=== PATIENT | female | born 1975 | race Caucasian/White ===

== ENCOUNTER 2021-01-28 09:09 | Outpatient (CLI) | payer BC ==
[2021-01-28 15:13] LABS: BASOPHILS # (AUTO) 0.1 10^3/uL (0.0-0.1); BASOPHILS % (AUTO) 1.3 %; EOSINOPHILS # (AUTO) 0.4 10^3/uL (0.0-0.7); EOSINOPHILS % (AUTO) 7.9 %; HCT - HEMATOCRIT 36.8 % (37.0-47.0); HGB - HEMOGLOBIN 11.7 g/dL (12.0-16.0); LYMPHOCYTES # (AUTO) 1.7 10^3/uL (1.5-3.5); LYMPHOCYTES % (AUTO) 32.2 %; MEAN CORPUSCULAR HGB CONC 31.8 g/dL (32.0-36.0); MEAN CORPUSCULAR VOLUME 94.4 fL (81.0-99.0); MEAN PLATELET VOLUME 10.1 fL (7.9-10.8); MONOCYTES # (AUTO) 0.5 10^3/uL (0.0-1.0); MONOCYTES % (AUTO) 9.8 %; NEUTROPHILS # (AUTO) 2.5 10^3/uL (1.5-6.6); NEUTROPHILS % (AUTO) 48.6 %; PLT - PLATELET COUNT 310 10^3/uL (130-450); RED CELL DISTRIBUTION WIDTH 12.8 % (12.0-15.0); WHITE BLOOD COUNT 5.2 x10^3/uL (4.8-10.8)
[2021-01-28 15:39] LABS: % IRON SATURATION 13 % (20-50); ALBUMIN/GLOBULIN RATIO 1.6 (1.0-2.2); ALKALINE PHOSPHATASE 36 IU/L (42-121); ALT ALANINE AMINOTRANSFERASE 15 IU/L (10-60); AST ASPARTATE AMINOTRANSFERASE 19 IU/L (10-42); BILIRUBIN,TOTAL 0.9 mg/dL (0.2-1.0); BUN - BLOOD UREA NITROGEN 17 mg/dL (6-20); CALCIUM 9.1 mg/dL (8.5-10.3); CARBON DIOXIDE - CO2 27 mmol/L (21-32); CHLORIDE 105 mmol/L (101-111); CHOL/HDL RATIO 2.2 (<4.4); CHOLESTEROL 258 mg/dL; CREATININE 0.6 mg/dL (0.4-1.0); GFR - MDRD 108 (>89); GLUCOSE 91 mg/dL (70-100); HDL CHOLESTEROL 115 mg/dL; IRON 47 ug/dL (28-170); SODIUM 141 mmol/L (135-145); TOTAL IRON BINDING CAPACITY 368 ug/dL (250-450); TOTAL PROTEIN 6.5 g/dL (6.7-8.2); TRANSFERRIN 263 mg/dL (192-382); TRIGLYCERIDES 31 mg/dL
[2021-01-28 15:45] LABS: THYROID STIMULATING HORMONE 0.6 uIU/mL (0.34-5.60)
[2021-01-28 15:46] LABS: FREE T3 2.81 pg/mL (2.5-3.9)
[2021-01-28 15:47] LABS: FREE T4 (FREE THYROXINE) 1.11 ng/dL (0.58-1.64)
[2021-01-28 15:52] LABS: FERRITIN 8.8 ng/mL (11.0-306.8)
[2021-01-31 09:51] LABS: DHEA SULFATE 157 mcg/dL (19-231)
[2021-02-04 16:36] LABS: T3 REVERSE 15 ng/dL (8-25)
== END 2021-01-28 09:10 | disposition home or self-care (01) ==
LOC: LAB.S 09:09
PROVIDERS: ATTEND Chiropractor
DX: Z00.00 Encounter for general adult medical examination without abnormal findings (principal); E03.9 Hypothyroidism, unspecified; E23.6 Other disorders of pituitary gland
CPT/HCPCS: 36415; 80053; 80061; 81599; 82306; 82627; 82728; 83540; 83721; 84270; 84402; 84403; 84439; 84443; 84466; 84481; 84482; 85025

== ENCOUNTER 2022-03-07 13:32 | Outpatient (CLI) | payer BC ==
[2022-03-07 19:58] LABS: THYROID STIMULATING HORMONE 0.63 uIU/mL (0.34-5.60)
== END 2022-03-07 13:33 | disposition home or self-care (01) ==
LOC: LAB.S 13:32
PROVIDERS: ATTEND Family Medicine
DX: E03.9 Hypothyroidism, unspecified (principal)
CPT/HCPCS: 36415; 84443

== ENCOUNTER 2022-04-12 08:57 | Outpatient (CLI) | payer BC ==
[2022-04-12 15:03] LABS: ESTIMATED AVERAGE GLUCOSE 97 mg/dL (70-100)
[2022-04-12 16:08] LABS: THYROID STIMULATING HORMONE 1.5 uIU/mL (0.34-5.60)
[2022-04-12 16:10] LABS: FREE T3 2.53 pg/mL (2.5-3.9); FREE T4 (FREE THYROXINE) 1.24 ng/dL (0.58-1.64)
[2022-04-13 22:07] LABS: THYROGLOBULIN ANTIBODY <1.0 IU/mL (0.0-0.9); THYROID PEROXIDASE (TPO) AB 9 IU/mL (0-34)
== END 2022-04-12 08:58 | disposition home or self-care (01) ==
LOC: LAB.S 08:57
PROVIDERS: ATTEND Chiropractor
DX: Z00.00 Encounter for general adult medical examination without abnormal findings (principal); E03.9 Hypothyroidism, unspecified
CPT/HCPCS: 36415; 83036; 84439; 84443; 84481; 84482; 86141; 86376; 86800

== ENCOUNTER 2023-07-04 07:12 | Outpatient (CLI) | payer BC, OTHER ==
[2023-07-04 14:35] LABS: BASOPHILS # (AUTO) 0.1 10^3/uL (0.0-0.1); BASOPHILS % (AUTO) 1.2 %; EOSINOPHILS # (AUTO) 0.5 10^3/uL (0.0-0.7); EOSINOPHILS % (AUTO) 12.5 %; HCT - HEMATOCRIT 38.7 % (37.0-47.0); HGB - HEMOGLOBIN 11.9 g/dL (12.0-16.0); LYMPHOCYTES # (AUTO) 1.9 10^3/uL (1.5-3.5); LYMPHOCYTES % (AUTO) 44.8 %; MEAN CORPUSCULAR HEMOGLOBIN 28.1 pg (27.0-31.0); MEAN CORPUSCULAR HGB CONC 30.7 g/dL (32.0-36.0); MEAN CORPUSCULAR VOLUME 91.3 fL (81.0-99.0); MEAN PLATELET VOLUME 10.3 fL (7.9-10.8); MONOCYTES # (AUTO) 0.5 10^3/uL (0.0-1.0); MONOCYTES % (AUTO) 10.8 %; NEUTROPHILS # (AUTO) 1.3 10^3/uL (1.5-6.6); NEUTROPHILS % (AUTO) 30.5 %; PLT - PLATELET COUNT 315 10^3/uL (130-450); RED BLOOD COUNT 4.24 10^6/uL (4.20-5.40); RED CELL DISTRIBUTION WIDTH 15.3 % (12.0-15.0); WHITE BLOOD COUNT 4.2 x10^3/uL (4.8-10.8)
[2023-07-04 15:12] LABS: ALBUMIN 4.1 g/dL (3.2-5.5); ALBUMIN/GLOBULIN RATIO 1.5 (1.0-2.2); ALKALINE PHOSPHATASE 49 IU/L (42-121); ALT ALANINE AMINOTRANSFERASE 12 IU/L (10-60); AST ASPARTATE AMINOTRANSFERASE 17 IU/L (10-42); BILIRUBIN,TOTAL 0.4 mg/dL (0.2-1.0); BUN - BLOOD UREA NITROGEN 17 mg/dL (6-20); CALCIUM 9.8 mg/dL (8.5-10.3); CARBON DIOXIDE - CO2 30 mmol/L (21-32); CHLORIDE 105 mmol/L (101-111); CHOL/HDL RATIO 2.3 (<4.4); CHOLESTEROL 273 mg/dL; CREATININE 0.7 mg/dL (0.6-1.3); GFR - MDRD 89 (>89); GLUCOSE 90 mg/dL (74-104); HDL CHOLESTEROL 117 mg/dL; LDL CHOLESTEROL,CALCULATED 147 mg/dL; LDL/HDL RATIO 1.3 (<4.4); POTASSIUM 4.4 mmol/L (3.5-4.5); SODIUM 139 mmol/L (135-145); TOTAL PROTEIN 6.9 g/dL (6.4-8.9); TRIGLYCERIDES 44 mg/dL (48-352); VLDL CHOLESTEROL 9 mg/dL
[2023-07-04 15:16] LABS: FERRITIN 5.8 ng/mL (11.0-306.8)
[2023-07-05 08:11] LABS: SEX HORM BINDING GLOB SERUM 50.9 nmol/L (24.6-122.0)
== END 2023-07-04 07:13 | disposition home or self-care (01) ==
LOC: LAB.S 07:12
PROVIDERS: ATTEND Family Medicine
DX: Z00.00 Encounter for general adult medical examination without abnormal findings (principal); Z79.890 Hormone replacement therapy; E78.2 Mixed hyperlipidemia; F52.0 Hypoactive sexual desire disorder
CPT/HCPCS: 36415; 80053; 80061; 81599; 82172; 82728; 83721; 84270; 84403; 85025